=== PATIENT | male | born 1990 | race African-American/Black ===

== ENCOUNTER 2018-10-05 19:24 | Emergency (ER) | payer OTHER ==
[~2018-10-05] VITALS: Ht 172.7 cm; Wt 72.7 kg
[2018-10-05] MEDS ORDERED: APAP325T4 PO (19:30)
[2018-10-05] MEDS ORDERED: IBUPROFEN 800 MG TAB PO ONE (19:45)
--- NOTE | 2018-10-05 20:10 | REP ---
Chest two views HISTORY: Cough Comparison: None The lungs are clear. The heart is normal in size. The pulmonary vasculature is normal in appearance. The bony structure is intact. IMPRESSION: No acute disease. Electronically Signed by Gareth Jacques MD 10/05/2018 08:02 P
[2018-10-05 20:16] LABS: INFLUENZA A AMPLIFICATION NEGATIVE (NEGATIVE); INFLUENZA B AMPLIFICATION NEGATIVE (NEGATIVE)
[2018-10-05] MEDS ORDERED: quiNINE SULFATE 324 MG CAP (QUALAQUIN) PO STA (21:20)
[2018-10-05] MEDS ORDERED: DOXYCYCLINE HYCLATE 100 MG TAB PO ONE (21:30)
[2018-10-05] MEDS ORDERED: DOXY100C37 PO ×2 (21:35→21:39)
[2018-10-05] MEDS ORDERED: QUIN324C2 PO ×2 (21:35→21:39)
[2018-10-05 21:44] LABS: BASO % 0.2 % (0.0-1.0); EOS # 0.4 10^3/uL (0.0-0.50); EOS % 2.9 % (0.0-3.0); HEMATOCRIT 43.4 % (42.0-52.0); HEMOGLOBIN 14.1 g/dl (13.5-17.5); LYMPH # 1.1 10^3/uL (1.5-6.5); LYMPH % 8.4 % (24.0-44.0); MEAN CORPUSCULAR HEMOGLOBIN 25.3 pg (27.0-33.0); MEAN CORPUSCULAR HGB CONC 32.5 g/dl (32.0-36.5); MEAN CORPUSCULAR VOLUME 77.9 fl (80.0-96.0); MONO # 0.7 10^3/uL (0.0-0.8); MONO % 5.2 % (0.0-5.0); NEUTROPHILS # 10.7 10^3/uL (1.8-7.7); NEUTROPHILS % 82.9 % (36.0-66.0); PLATELET COUNT, AUTOMATED 221 10^3/uL (150-450); RED BLOOD COUNT 5.57 10^6/uL (4.30-6.10); WHITE BLOOD COUNT 12.9 10^3/uL (4.0-10.0)
[2018-10-05 21:47] VITALS: BP 141/78
[2018-10-05 22:06] LABS: ALT/SGPT 26 U/L (12-78); BILIRUBIN,TOTAL 0.4 MG/DL (0.2-1.0); BLOOD UREA NITROGEN 11 MG/DL (7-18); CALCIUM LEVEL 9.5 MG/DL (8.5-10.1); CARBON DIOXIDE LEVEL 25 MEQ/L (21-32); CHLORIDE LEVEL 102 MEQ/L (98-107); CREATININE FOR GFR 1.11 MG/DL (0.70-1.30); GLOMERULAR FILTRATION RATE > 60.0 (>60); GLUCOSE, FASTING 111 MG/DL (70-100); POTASSIUM SERUM 3.7 MEQ/L (3.5-5.1); SODIUM LEVEL 136 MEQ/L (136-145); TOTAL PROTEIN 7.9 GM/DL (6.4-8.2)
[2018-10-06] MEDS ORDERED: ONDA4TAB6 PO (15:55)
== END 2018-10-05 21:49 | disposition home or self-care (01) ==
LOC: M ED 19:24
DX: R50.9 Fever, unspecified (principal); R05 Cough; R52 Pain, unspecified; Z86.13 Personal history of malaria

== ENCOUNTER 2018-10-06 14:55 | Emergency (ER) | payer OTHER ==
[~2018-10-06] VITALS: Ht 172.7 cm; Wt 72.7 kg
[~2018-10-06 14:55] MED LIST: APAP325T4 PO; DOXY100C37 PO; QUIN324C2 PO
[2018-10-06 14:56] VITALS: BP 139/80
[2018-10-06] MEDS ORDERED: ONDA4TAB6 PO (15:55)
== END 2018-10-06 16:06 | disposition home or self-care (01) ==
LOC: M ED 14:55
DX: R50.9 Fever, unspecified (principal); Z86.13 Personal history of malaria